=== PATIENT | male | born 1950 | race African-American/Black ===

== ENCOUNTER 2020-06-03 14:16 | Outpatient (CLI) | payer OTHER ==
[2020-06-04 01:49] LABS: SARS-CoV-2 PCR by NAA Not Detected (NotDetected)
== END 2020-06-03 14:17 | disposition home or self-care (01) ==
LOC: CSHLAB 14:16
PROVIDERS: ATTEND Orthopaedic Surgery
DX: Z20.822 Contact with and (suspected) exposure to COVID-19 (principal)
CPT/HCPCS: 87635; U0003; U0005

== ENCOUNTER 2020-06-08 13:39 | Outpatient (CLI) | payer OTHER | END 2020-06-08 13:40 | disposition home or self-care (01) | LOC: CSHCP 13:39 | PROVIDERS: ATTEND Orthopaedic Surgery | DX: J45.998 Other asthma (principal); R06.02 Shortness of breath; R94.2 Abnormal results of pulmonary function studies | CPT/HCPCS: 71046; 94060; 94664; 94760 ==